=== PATIENT | female | born 1975 | race Caucasian/White ===

== ENCOUNTER 2018-10-04 07:48 | Day surgery (SDC) | payer OTHER, MEDICARE, MEDICAID ==
[~2018-10-04] VITALS: Ht 162.6 cm; Wt 71.5 kg
[~2018-10-04 07:48] MED LIST: CELE200 PO; DEPOP150I IM; DIPH25 PO; DOCU250C91 PO; FOLI1 PO; OXCA300T29 PO; POLY17PO29 PO; QUET25TA PO; QUET300T2 PO; RINGERS SOLUTION,LACTATED 0 ML IV ONE; RINGERS SOLUTION,LACTATED 1,000 ML IV ONE; RISP0.2515 PO; VITA400T9 PO
[2018-10-04] MEDS ORDERED: AMPICILLIN SODIUM 1 GM/VIAL ONE (07:50)
== END 2018-10-04 09:10 | disposition home or self-care (01) ==
LOC: SURGERY 07:48
PROVIDERS: ATTEND Dentist General Practice
DX: K05.6 Periodontal disease, unspecified (principal); Z53.8 Procedure and treatment not carried out for other reasons; G40.909 Epilepsy, unspecified, not intractable, without status epilepticus; F41.9 Anxiety disorder, unspecified; Z98.890 Other specified postprocedural states; Z79.899 Other long term (current) drug therapy
CPT/HCPCS: 93005; J0290; J7120

== ENCOUNTER 2018-12-04 06:43 | Day surgery (SDC) | payer OTHER, MEDICARE, MEDICAID ==
[~2018-12-04] VITALS: Ht 162.6 cm; Wt 71.5 kg
[~2018-12-04 06:43] MED LIST changes: -RINGERS SOLUTION,LACTATED 0 ML IV ONE
[2018-12-04] MEDS ORDERED: RINGERS SOLUTION,LACTATED 1,000 ML IV ONE (07:00)
[2018-12-04] MEDS ORDERED: AMPICILLIN SODIUM 1 GM/VIAL ONE (07:02)
[2018-12-04] MEDS ORDERED: SODIUM CHLORIDE 0.9% 100 ML ONE (07:03)
[2018-12-04] MEDS ORDERED: MIDAZOLAM HCL 5 MG/ML VIAL ONE (07:13)
[2018-12-04] MEDS ORDERED: ONDANSETRON HCL 4 MG/2 ML VIAL IVP ONE (12:00)
[2018-12-04] MEDS ORDERED: DEXAMETHASONE SOD PHOS 4 MG/ML VIAL IVP ONE (12:00)
[2018-12-04] MEDS ORDERED: SUCCINYLCHOLINE CHLORIDE 20 MG/ML 10 ML VIAL IVP ONE (12:00)
[2018-12-04] MEDS ORDERED: PROPOFOL 1% 20 ML VIAL IVP ONE (12:00)
[2018-12-04] MEDS ORDERED: FentaNYL CITRATE-PF 100 MCG/2 ML VIAL IVP ONE (12:00)
[2018-12-04] MEDS ORDERED: LIDOCAINE/PF 2% 5 ML VIAL INJ ONE (12:00)
== END 2018-12-04 12:40 | disposition home or self-care (01) ==
LOC: SURGERY 06:43
PROVIDERS: ATTEND Dentist General Practice
DX: K05.30 Chronic periodontitis, unspecified (principal); F34.9 Persistent mood [affective] disorder, unspecified; F29 Unspecified psychosis not due to a substance or known physiological condition; G80.9 Cerebral palsy, unspecified; G40.409 Other generalized epilepsy and epileptic syndromes, not intractable, without status epilepticus; F32.9 Major depressive disorder, single episode, unspecified; E66.9 Obesity, unspecified; F72 Severe intellectual disabilities; Z79.899 Other long term (current) drug therapy; Z98.890 Other specified postprocedural states
CPT/HCPCS: 36415; 41899; 71045; 84702; 93005; J0290; J0330; J1100; J2250; J2405; J2704; J3010; J3490; J7050; J7120